=== PATIENT | male | born 1960 | race Caucasian/White ===

== ENCOUNTER → 2018-01-13 | Outpatient (CLI) | payer OTHER ==
--- NOTE | 2018-01-13 09:37 | RAD ---
EXAM DESCRIPTION: Elbow,Right 3 Views CLINICAL HISTORY: PAIN IN RIGHT ELBOW COMPARISON: None. TECHNIQUE: 3 views right FINDINGS: I see no bone joint or soft tissue abnormality. IMPRESSION: Normal right elbow. Electronically signed by: Norm Rodriguez MD 01/13/2018 9:36 AM CDT
== END ==
LOC: RAD 08:29
PROVIDERS: ATTEND Orthopaedic Surgery
DX: M25.521 Pain in right elbow (principal)